=== PATIENT | male | born 1950 | race Caucasian/White ===

== ENCOUNTER 2020-06-20 04:45 | Inpatient (IN) | payer OTHER ==
[~2020-06-20] VITALS: Ht 185.4 cm; Wt 117.0 kg
[2020-06-20] MEDS ORDERED: ALBUTEROL SULF 2.5 MG/0.5ML(0.5%) NEB SOLN NEB ONE (05:00)
[2020-06-20] MEDS ORDERED: methylPREDNISolone SOD SUCC 125 MG/2 ML VL IV ONE (05:00)
[2020-06-20] MEDS ORDERED: IPRATROPIUM BROM 0.5 MG/2.5ML INH SOL NEB ONE (05:00)
[2020-06-20] MEDS ORDERED: ETOMIDATE (2MG/ML) 20ML VIAL IV ONE ×2 (05:06→05:10)
[2020-06-20] MEDS ORDERED: SUCCINYLCHOLINE CHLORIDE 20 MG/ML 10ML VIAL IV ONE ×3 (05:06→05:21)
[2020-06-20 05:25] LABS: Basophils # (auto) 0 10 ^3/uL (0-0.2); Basophils % (auto) 0.4 % (0.0-2.0); Eosinophils # (auto) 0 10 ^3/uL (0-0.8); Hematocrit 50.6 % (41.0-53.0); Hemoglobin 17.1 g/dL (13.5-17.5); Lymphocytes # (auto) 0.4 10 ^3/uL (0.4-5.4); Lymphocytes % (auto) 4.2 % (10.0-50.0); Mean Corpuscular Hemoglobin 29.1 pg (28.0-32.0); Mean Corpuscular Hgb Conc. 33.8 g/dL (32.0-36.0); Mean Corpuscular Volume 86.1 fL (80.0-100.0); Monocytes # (auto) 0.3 10 ^3/uL (0-1.3); Monocytes % (auto) 2.6 % (0.0-12.0); Neutrophils # (auto) 9.7 10 ^3/uL (1.6-8.6); Neutrophils % (auto) 92.8 % (37.0-80.0); Platelet Count (auto) 179 10^3/uL (140-450); Red Blood Cells 5.88 10^6/uL (4.5-5.90); Red Cell Distribution Width 14.2 % (11.8-14.3); White Blood Cell 10.5 10^3/uL (4.4-10.8)
[2020-06-20] MEDS: PROPOFOL 100 ML IV SCH ×3 (05:25→23:48)
[2020-06-20 05:32] VITALS: BP 102/65
[2020-06-20 05:45] LABS: Potassium 4.3 mmol/L (3.5-5.1)
[2020-06-20 05:56] LABS: Albumin 2.7 g/dL (3.4-5.0); Bilirubin, Total 0.7 mg/dL (0.2-1.0); Calcium 7.8 mg/dL (8.5-10.1); Magnesium 2.4 mg/dL (1.6-2.6); Total Protein 7.1 g/dL (6.4-8.2)
[2020-06-20] MEDS ORDERED: NOREPINEPHRINE 8 MG/250ML KIT 250 ML IV ONE (06:07)
[2020-06-20] MEDS: NOREPINEPHRINE 8 MG/250ML KIT 250 ML IV SCH ×2 (06:16→23:10)
[2020-06-20 06:21] LABS: INR 1.08 (0.9-1.15); Partial Thromboplastin Time 32.5 sec (23.0-31.2)
[2020-06-20] MEDS ORDERED: MIDAZOLAM DRIP 50 mg/50mL 50 ML IV ONE ×2 (06:51→10:29)
[2020-06-20] MEDS ORDERED: ENOXAPARIN SOD 100 MG/1 ML SYRINGE SC ONE (07:00)
[2020-06-20] MEDS ORDERED: NITROGLYCERIN 0.4 MG SL TAB SL PRN (07:45)
[2020-06-20] MEDS: SODIUM CHLORIDE 0.9% 1,000 ML IV SCH (07:45)
[2020-06-20] MEDS ORDERED: MORPHINE SULF INJ 2 MG/ML SYRINGE 1ML IV PRN (07:45)
[2020-06-20] MEDS ORDERED: REMDESIVIR PER PHARMACY 0 ML IV SCH ×2 (07:45→08:00)
[2020-06-20] MEDS ORDERED: ONDANSETRON HCL 4 MG/2 ML VIAL IV PRN (07:45)
[2020-06-20] MEDS ORDERED: ALBUTEROL SULF HFA 90MCG INH 200DOSE IN PRN (07:45)
[2020-06-20] MEDS ORDERED: ENOXAPARIN SOD 40 MG/0.4 ML SYRINGE SC SCH ×3 (08:45→10:00)
[2020-06-20 08:57] LABS: Hematocrit 49.3 % (41.0-53.0); Hemoglobin 16.3 g/dL (13.5-17.5); Mean Corpuscular Hgb Conc. 33.1 g/dL (32.0-36.0); Mean Corpuscular Volume 87.5 fL (80.0-100.0); Platelet Count (auto) 208 10^3/uL (140-450); Red Blood Cells 5.63 10^6/uL (4.5-5.90); White Blood Cell 13.9 10^3/uL (4.4-10.8)
[2020-06-20 09:00] LABS: Basophils % (manual) 0 (0.0-2.0); Blast Cells 0; Eosinophils % (manual) 0 (0-7); Promyelocytes % 0; Reactive Lymphocytes 0
[2020-06-20 09:08] LABS: Albumin 2.7 g/dL (3.4-5.0); Calcium 7.5 mg/dL (8.5-10.1); Magnesium 2.5 mg/dL (1.6-2.6); Potassium 4.2 mmol/L (3.5-5.1)
[2020-06-20 09:13] LABS: BUN/Creatinine Ratio 11.8; Bilirubin, Total 0.8 mg/dL (0.2-1.0)
[2020-06-20 09:17] LABS: Band Neutrophils % (manual) 9; Lymphocytes % (manual) 1 (10.0-50.0); Metamyelocytes % 1; Monocytes % (manual) 4 (0-12); Myelocytes % 1
[2020-06-20] MEDS: DexAMETHasone SOD PHOS 10MG/1ML VIAL INJ IV SCH (10:00)
[2020-06-20] MEDS ORDERED: DOXYCYCLINE 100MG/250ML 250 ML IV SCH (10:00)
[2020-06-20] MEDS ORDERED: BUDESONIDE (INHALATION) 180 MCG IH IN SCH (10:00)
[2020-06-20 10:25] VITALS: BP 98/64
[2020-06-20] MEDS ORDERED: CLOPIDOGREL BISULFATE 75 MG TAB PO ONE (12:00)
[2020-06-20 13:39] VITALS: BP 99/63
[2020-06-20] MEDS: MIDAZOLAM DRIP 50 mg/50mL 50 ML IV SCH ×2 (14:15→22:54)
[2020-06-20 14:17] LABS: Urine Bacteria FEW /hpf (None Seen); Urine Blood 2+ /uL (Negative); Urine Hyaline Cast FEW /lpf (0 - 2); Urine Specific Gravity 1.024 (1.001-1.035); Urine WBC 1 /hpf (0 - 3)
[2020-06-20] MEDS: AZITHROMYCIN 500MG/ 250ML 250 ML IV SCH (14:36)
[2020-06-20] MEDS ORDERED: REMDESIVIR 200 MG in NS 210ml LOADING DOSE ADULT IV ONE (15:00)
[2020-06-20 18:35] VITALS: BP 100/68
[2020-06-20] MEDS: ENOXAPARIN SOD 120 MG/0.8 ML SYRINGE SC SCH (22:19)
[2020-06-20 22:40] VITALS: BP 107/73
[2020-06-21] MEDS: SODIUM CHLORIDE 0.9% 1,000 ML IV SCH ×2 (00:25→17:10)
[2020-06-21 02:29] VITALS: BP 107/71
[2020-06-21] MEDS ORDERED: MIDAZOLAM HCL 10 ML IV ONE (04:59)
[2020-06-21] MEDS: MIDAZOLAM DRIP 50 mg/50mL 50 ML IV SCH ×2 (05:31→23:00)
[2020-06-21 07:00] VITALS: BP 105/69
[2020-06-21] MEDS: ENOXAPARIN SOD 120 MG/0.8 ML SYRINGE SC SCH ×2 (09:16→20:51)
[2020-06-21] MEDS: DexAMETHasone SOD PHOS 10MG/1ML VIAL INJ IV SCH (09:34)
[2020-06-21] MEDS: AZITHROMYCIN 500MG/ 250ML 250 ML IV SCH (09:36)
[2020-06-21 09:44] LABS: Hematocrit 46.6 % (41.0-53.0); Hemoglobin 15.8 g/dL (13.5-17.5); Mean Corpuscular Hemoglobin 29.3 pg (28.0-32.0); Mean Corpuscular Hgb Conc. 33.8 g/dL (32.0-36.0); Mean Corpuscular Volume 86.5 fL (80.0-100.0); Platelet Count (auto) 235 10^3/uL (140-450); Red Blood Cells 5.39 10^6/uL (4.5-5.90); Red Cell Distribution Width 14.3 % (11.8-14.3); White Blood Cell 17.4 10^3/uL (4.4-10.8)
[2020-06-21 09:52] LABS: Basophils % (manual) 0 (0.0-2.0); Blast Cells 0; Eosinophils % (manual) 0 (0-7); Metamyelocytes % 0; Myelocytes % 0; Promyelocytes % 0; Reactive Lymphocytes 0
[2020-06-21 10:04] LABS: Potassium 4.5 mmol/L (3.5-5.1)
[2020-06-21 10:24] LABS: Band Neutrophils % (manual) 7; Lymphocytes % (manual) 4 (10.0-50.0); Monocytes % (manual) 1 (0-12)
[2020-06-21 10:27] LABS: Albumin 2.3 g/dL (3.4-5.0); BUN/Creatinine Ratio 15.1; Bilirubin, Total 0.6 mg/dL (0.2-1.0); Calcium 7.8 mg/dL (8.5-10.1); Total Protein 6.8 g/dL (6.4-8.2)
[2020-06-21] MEDS ORDERED: CLOPIDOGREL BISULFATE 75 MG TAB PO ONE (12:00)
[2020-06-21 14:50] VITALS: BP 112/71
[2020-06-21] MEDS ORDERED: REMDESIVIR 100 MG in SODIUM CHL 0.9% 250 ML IV SCH (15:00)
[2020-06-21 18:18] VITALS: BP 112/76
[2020-06-21 22:22] VITALS: BP 110/74
[2020-06-21] MEDS: PROPOFOL 100 ML IV SCH (23:00)
[2020-06-21] MEDS ORDERED: DEXTROSE (50%) 50ML SYRG IV PRN (23:45)
[2020-06-21] MEDS ORDERED: SODIUM CHLORIDE 0.9% 1,000 ML IV SCH (23:45)
[2020-06-22] MEDS: InsuLIN REG 1unit/0.01ml Soln (100units/ml) SC SCH ×5 (00:25→23:45)
[2020-06-22] MEDS: PIPERACILLIN-TAZOB 2.25GM 50 ML IV SCH ×5 (00:25→23:44)
[2020-06-22] MEDS ORDERED: MIDAZOLAM HCL 10 ML IV ONE (03:29)
[2020-06-22] MEDS: NOREPINEPHRINE 8 MG/250ML KIT 250 ML IV SCH (04:00)
[2020-06-22] MEDS: MIDAZOLAM DRIP 50 mg/50mL 50 ML IV SCH (04:03)
[2020-06-22 04:47] LABS: Basophils # (auto) 0 10 ^3/uL (0-0.2); Basophils % (auto) 0.1 % (0.0-2.0); Eosinophils # (auto) 0 10 ^3/uL (0-0.8); Hematocrit 44.2 % (41.0-53.0); Lymphocytes # (auto) 0.5 10 ^3/uL (0.4-5.4); Lymphocytes % (auto) 2.8 % (10.0-50.0); Mean Corpuscular Hemoglobin 29.1 pg (28.0-32.0); Mean Corpuscular Hgb Conc. 33.9 g/dL (32.0-36.0); Monocytes # (auto) 0.7 10 ^3/uL (0-1.3); Neutrophils # (auto) 15.5 10 ^3/uL (1.6-8.6); Neutrophils % (auto) 93.1 % (37.0-80.0); Nucleated Red Blood Cells % 0.1 %; Platelet Count (auto) 235 10^3/uL (140-450); Red Blood Cells 5.14 10^6/uL (4.5-5.90); Red Cell Distribution Width 14.3 % (11.8-14.3); White Blood Cell 16.7 10^3/uL (4.4-10.8)
[2020-06-22 05:11] LABS: Potassium 4.5 mmol/L (3.5-5.1)
[2020-06-22 05:17] LABS: Albumin 2.1 g/dL (3.4-5.0); BUN/Creatinine Ratio 15.3; Bilirubin, Total 0.5 mg/dL (0.2-1.0); Calcium 6.8 mg/dL (8.5-10.1); Magnesium 3.1 mg/dL (1.6-2.6); Total Protein 6.5 g/dL (6.4-8.2)
[2020-06-22] MEDS: ACCU-CHEK COMFORT CURVE STRIP VI SCH ×5 (05:26→23:46)
[2020-06-22 07:00] VITALS: BP 111/72
[2020-06-22] MEDS: CHOLECALCIFEROL (VITD3) 2,000 UNIT CAP PO SCH (08:53)
[2020-06-22] MEDS: PANTOPRAZOLE 40 MG/10 ML VIAL INJ IV SCH (08:53)
[2020-06-22] MEDS: DexAMETHasone SOD PHOS 10MG/1ML VIAL INJ IV SCH (08:53)
[2020-06-22] MEDS: ASPirin-EC 81 mg tab PO SCH (08:53)
[2020-06-22] MEDS: ASCORBIC ACID 500 MG TAB PO SCH (08:53)
[2020-06-22] MEDS: ZINC SULFATE 220mg CAP or TAB PO SCH (08:54)
[2020-06-22] MEDS ORDERED: ENOXAPARIN SOD 120 MG/0.8 ML SYRINGE SC SCH (10:00)
[2020-06-22] MEDS: BUDESONIDE (INHALATION) 0.5 MG/2 ML NEB NEB SCH ×2 (10:00→18:20)
[2020-06-22] MEDS ORDERED: FUROSEMIDE 20 MG/2 ML VIAL IV SCH (10:00)
[2020-06-22 13:39] VITALS: BP 106/72
[2020-06-22 15:16] VITALS: BP 109/73
[2020-06-22 18:20] VITALS: BP 118/58
[2020-06-22] MEDS: BUMETANIDE INJECTION 25 MG in GIVE UN-DILUTED 0 ML IV SCH (20:41)
[2020-06-22] MEDS: ATORVASTATIN 20 MG TAB PO SCH (22:00)
[2020-06-22] MEDS: METOPROLOL TARTRATE 25 MG TAB PO SCH (22:00)
[2020-06-22] MEDS: DOPamine 1600MCG/ML D5W 250 ML IV SCH (22:12)
[2020-06-22 22:30] VITALS: BP 95/54
[2020-06-23 02:45] VITALS: BP 114/64
[2020-06-23] MEDS: PIPERACILLIN-TAZOB 2.25GM 50 ML IV SCH ×3 (06:00→18:30)
[2020-06-23] MEDS: InsuLIN REG 1unit/0.01ml Soln (100units/ml) SC SCH ×3 (06:00→18:00)
[2020-06-23] MEDS: ACCU-CHEK COMFORT CURVE STRIP VI SCH ×3 (06:00→18:12)
[2020-06-23 06:34] VITALS: BP 122/65
[2020-06-23] MEDS: PROPOFOL 100 ML IV SCH (06:41)
[2020-06-23] MEDS: NOREPINEPHRINE 8 MG/250ML KIT 250 ML IV SCH (06:42)
[2020-06-23 07:46] LABS: Hematocrit 46.3 % (41.0-53.0); Hemoglobin 15.5 g/dL (13.5-17.5); Mean Corpuscular Hemoglobin 29.3 pg (28.0-32.0); Mean Corpuscular Hgb Conc. 33.4 g/dL (32.0-36.0); Mean Corpuscular Volume 87.8 fL (80.0-100.0); Platelet Count (auto) 266 10^3/uL (140-450); Red Blood Cells 5.28 10^6/uL (4.5-5.90); Red Cell Distribution Width 15.1 % (11.8-14.3); White Blood Cell 19.1 10^3/uL (4.4-10.8)
[2020-06-23 08:06] LABS: Albumin 2.1 g/dL (3.4-5.0); Anion Gap 10 (5-15); Calcium 6.9 mg/dL (8.5-10.1); Carbon Dioxide 22 mmol/L (21-32); Chloride 96 mmol/L (98-107); Glucose 185 mg/dL (74-106); Sodium 128 mmol/L (136-145)
[2020-06-23 08:18] LABS: Alanine Aminotransferase 54 U/L (16-61); Alkaline Phosphatase 98 U/L (45-117); Aspartate Aminotransferase 90 U/L (15-37); BUN/Creatinine Ratio 12.4; Bilirubin, Total 0.8 mg/dL (0.2-1.0); GFR African American 9 mL/min; GFR Non-African American 8 mL/min; Total Protein 6.9 g/dL (6.4-8.2)
[2020-06-23 08:23] LABS: CRP High Sensitivity > 19.0 mg/dL (< 0.3); Potassium 6.6 mmol/L (3.5-5.1)
[2020-06-23 08:25] LABS: Blood Urea Nitrogen 93 mg/dL (7-18)
[2020-06-23 08:42] LABS: Basophils % (manual) 0 (0.0-2.0); Blast Cells 0; Eosinophils % (manual) 0 (0-7); Promyelocytes % 0; Reactive Lymphocytes 0
[2020-06-23] MEDS ORDERED: ALBUTEROL SULF 2.5 MG/0.5ML(0.5%) NEB SOLN NEB ONE (09:00)
[2020-06-23] MEDS ORDERED: CALCIUM GLUC 4.65meq/50ml D5AE 50 ML IV ONE (09:00)
[2020-06-23] MEDS ORDERED: DEXTROSE (50%) 50ML SYRG IV ONE (09:00)
[2020-06-23] MEDS ORDERED: SODIUM ZIRCONIUM CYCL 10 GM PAK GT ONE (09:00)
[2020-06-23] MEDS ORDERED: SODIUM BICARBONATE 8.4 % INJ 50ML VIAL IV ONE (09:00)
[2020-06-23] MEDS ORDERED: InsuLIN REG 1unit/0.01ml Soln (100units/ml) IV ONE (09:00)
[2020-06-23] MEDS: ASPirin-EC 81 mg tab PO SCH (10:00)
[2020-06-23] MEDS: BUDESONIDE (INHALATION) 0.5 MG/2 ML NEB NEB SCH ×2 (10:00→22:00)
[2020-06-23] MEDS: CHOLECALCIFEROL (VITD3) 2,000 UNIT CAP PO SCH (10:00)
[2020-06-23] MEDS: ASCORBIC ACID 500 MG TAB PO SCH (10:00)
[2020-06-23] MEDS ORDERED: ENOXAPARIN SOD 40 MG/0.4 ML SYRINGE SC SCH (10:00)
[2020-06-23] MEDS: DexAMETHasone SOD PHOS 10MG/1ML VIAL INJ IV SCH (10:00)
[2020-06-23] MEDS ORDERED: CLOPIDOGREL BISULFATE 75 MG TAB PO SCH (10:00)
[2020-06-23 10:12] LABS: Band Neutrophils % (manual) 11; Lymphocytes % (manual) 3 (10.0-50.0); Metamyelocytes % 3; Monocytes % (manual) 6 (0-12); Myelocytes % 1
[2020-06-23 10:22] VITALS: BP 109/59
[2020-06-23 11:00] VITALS: BP 102/61
[2020-06-23] MEDS ORDERED: BUMETANIDE 2.5mg/10ml (0.25 mg/ml) INJ IV ONE (11:30)
[2020-06-23] MEDS: ENOXAPARIN SOD 120 MG/0.8 ML SYRINGE SC SCH (14:00)
[2020-06-23] MEDS: ZINC SULFATE 220mg CAP or TAB PO SCH (14:00)
[2020-06-23] MEDS: SODIUM BICARBONATE 50ML VIAL 100 ML in SOD CHL 0.45% 1,000 ML IV SCH ×2 (14:00→22:30)
[2020-06-23] MEDS ORDERED: SODIUM BICARBONATE 8.4% INJ 50ML SYRINGE ONE (14:06)
[2020-06-23] MEDS: PANTOPRAZOLE 40 MG/10 ML VIAL INJ IV SCH (14:30)
[2020-06-23] MEDS ORDERED: methylPREDNISolone SOD SUCC 40 MG/ML VL IV ONE (15:30)
[2020-06-23] MEDS ORDERED: diphenhdrAMINE HCL 50 MG/1 ML VL IV ONE (15:30)
[2020-06-23] MEDS ORDERED: ACETAMINOPHEN 650 mg PER 20.3 mL UD PO ONE (15:30)
[2020-06-23] MEDS ORDERED: TOCILIZUMAB 400 MG in SODIUM CHL 0.9% 80 ML IV ONE (16:00)
[2020-06-23] MEDS: DOPamine 1600MCG/ML D5W 250 ML IV SCH (17:00)
[2020-06-23] MEDS: MIDAZOLAM DRIP 50 mg/50mL 50 ML IV SCH ×3 (17:02→18:31)
[2020-06-23] MEDS: BUMETANIDE INJECTION 25 MG in GIVE UN-DILUTED 0 ML IV SCH (18:00)
[2020-06-23 18:50] VITALS: BP 113/54
[2020-06-23] MEDS: LINEZOLID 600MG/300ML 300 ML IV SCH (22:00)
[2020-06-23] MEDS: ATORVASTATIN 20 MG TAB PO SCH (22:00)
[2020-06-23 22:42] LABS: Protein, Urine 142.9 mg/dL (0.0-11.9)
[2020-06-23 22:43] LABS: Creatinine, Urine 119 mg/dL (30.0-125.0); Sodium Urine 14 mmol/L (40-220)
[2020-06-23 22:50] VITALS: BP 129/64
[2020-06-24] MEDS: InsuLIN REG 1unit/0.01ml Soln (100units/ml) SC SCH ×4 (02:00→18:03)
[2020-06-24 02:30] VITALS: BP 130/70
[2020-06-24] MEDS ORDERED: SODIUM BICARBONATE 8.4% INJ 50ML SYRINGE ONE (02:36)
[2020-06-24] MEDS: PROPOFOL 100 ML IV SCH (05:38)
[2020-06-24] MEDS: ACCU-CHEK COMFORT CURVE STRIP VI SCH ×4 (05:38→18:03)
[2020-06-24] MEDS: NOREPINEPHRINE 8 MG/250ML KIT 250 ML IV SCH (05:39)
[2020-06-24 05:51] LABS: Hematocrit 40.8 % (41.0-53.0); Hemoglobin 13.5 g/dL (13.5-17.5); Mean Corpuscular Hemoglobin 28.5 pg (28.0-32.0); Mean Corpuscular Hgb Conc. 33.1 g/dL (32.0-36.0); Mean Corpuscular Volume 86.1 fL (80.0-100.0); Platelet Count (auto) 251 10^3/uL (140-450); Red Blood Cells 4.74 10^6/uL (4.5-5.90); Red Cell Distribution Width 15.1 % (11.8-14.3); White Blood Cell 16.3 10^3/uL (4.4-10.8)
[2020-06-24 05:56] LABS: Basophils % (manual) 0 (0.0-2.0); Blast Cells 0; Eosinophils % (manual) 0 (0-7); Myelocytes % 0; Reactive Lymphocytes 0
[2020-06-24 06:05] LABS: Albumin 1.7 g/dL (3.4-5.0); BUN/Creatinine Ratio 12.2; Bilirubin, Total 0.9 mg/dL (0.2-1.0); CRP High Sensitivity 17.7 mg/dL (< 0.3); Calcium 6.5 mg/dL (8.5-10.1); Total Protein 6.1 g/dL (6.4-8.2)
[2020-06-24] MEDS: BUDESONIDE (INHALATION) 0.5 MG/2 ML NEB NEB SCH ×2 (06:15→09:09)
[2020-06-24] MEDS: PIPERACILLIN-TAZOB 2.25GM 50 ML IV SCH ×4 (06:21→18:02)
[2020-06-24 06:54] VITALS: BP 128/75
[2020-06-24] MEDS ORDERED: diphenhdrAMINE HCL 50 MG/1 ML VL IV ONE (07:30)
[2020-06-24] MEDS ORDERED: ACETAMINOPHEN 650 mg PER 20.3 mL UD PO ONE (07:30)
[2020-06-24] MEDS ORDERED: methylPREDNISolone SOD SUCC 40 MG/ML VL IV ONE (07:30)
[2020-06-24 07:35] LABS: Band Neutrophils % (manual) 7; Lymphocytes % (manual) 3 (10.0-50.0); Metamyelocytes % 2; Monocytes % (manual) 5 (0-12); Promyelocytes % 2
[2020-06-24] MEDS ORDERED: TOCILIZUMAB 400 MG in SODIUM CHL 0.9% 80 ML IV ONE (08:00)
[2020-06-24] MEDS: SODIUM BICARBONATE 50ML VIAL 100 ML in SOD CHL 0.45% 1,000 ML IV SCH ×2 (09:30→18:03)
[2020-06-24] MEDS: ASCORBIC ACID 500 MG TAB PO SCH (10:00)
[2020-06-24] MEDS: ENOXAPARIN SOD 120 MG/0.8 ML SYRINGE SC SCH (10:00)
[2020-06-24] MEDS: ASPirin-EC 81 mg tab PO SCH (10:00)
[2020-06-24] MEDS: PANTOPRAZOLE 40 MG/10 ML VIAL INJ IV SCH (10:00)
[2020-06-24] MEDS: ZINC SULFATE 220mg CAP or TAB PO SCH (10:00)
[2020-06-24] MEDS: DexAMETHasone SOD PHOS 10MG/1ML VIAL INJ IV SCH (10:00)
[2020-06-24] MEDS: LINEZOLID 600MG/300ML 300 ML IV SCH ×2 (10:00→22:00)
[2020-06-24] MEDS: CHOLECALCIFEROL (VITD3) 2,000 UNIT CAP PO SCH (10:00)
[2020-06-24] MEDS ORDERED: methylPREDNISolone SOD SUCC 125 MG/2 ML VL ONE (12:15)
[2020-06-24] MEDS ORDERED: SODIUM CHL 0.9% 1000 ML BAG XX ONE (13:00)
[2020-06-24 13:54] VITALS: BP 109/62
[2020-06-24] MEDS: DOPamine 1600MCG/ML D5W 250 ML IV SCH (17:42)
[2020-06-24] MEDS: BUMETANIDE INJECTION 25 MG in GIVE UN-DILUTED 0 ML IV SCH (17:43)
[2020-06-24 18:30] VITALS: BP 95/52
[2020-06-24] MEDS: ATORVASTATIN 20 MG TAB PO SCH (22:00)
[2020-06-24 22:30] VITALS: BP 100/56
[2020-06-25] VITALS (10 sets, daily range): BP systolic 90–120; BP diastolic 46–67
[2020-06-25] MEDS: ACCU-CHEK COMFORT CURVE STRIP VI SCH ×4 (00:21→16:48)
[2020-06-25] MEDS: InsuLIN REG 1unit/0.01ml Soln (100units/ml) SC SCH ×4 (00:26→16:49)
[2020-06-25] MEDS: PIPERACILLIN-TAZOB 2.25GM 50 ML IV SCH ×2 (00:26→06:00)
[2020-06-25] MEDS: BUDESONIDE (INHALATION) 0.5 MG/2 ML NEB NEB SCH ×2 (06:15→20:08)
[2020-06-25] MEDS: NOREPINEPHRINE 8 MG/250ML KIT 250 ML IV SCH (06:29)
[2020-06-25] MEDS: PROPOFOL 100 ML IV SCH ×2 (06:29→09:03)
[2020-06-25] MEDS: SODIUM BICARBONATE 50ML VIAL 100 ML in SOD CHL 0.45% 1,000 ML IV SCH ×2 (07:30→20:29)
[2020-06-25] MEDS: DexAMETHasone SOD PHOS 10MG/1ML VIAL INJ IV SCH ×2 (09:06→23:27)
[2020-06-25] MEDS: CHOLECALCIFEROL (VITD3) 2,000 UNIT CAP PO SCH (09:06)
[2020-06-25] MEDS: ZINC SULFATE 220mg CAP or TAB PO SCH (09:06)
[2020-06-25] MEDS: ASPirin-EC 81 mg tab PO SCH (09:06)
[2020-06-25] MEDS: PANTOPRAZOLE 40 MG/10 ML VIAL INJ IV SCH (09:06)
[2020-06-25] MEDS: ASCORBIC ACID 500 MG TAB PO SCH (09:06)
[2020-06-25] MEDS: ENOXAPARIN SOD 120 MG/0.8 ML SYRINGE SC SCH (09:06)
[2020-06-25] MEDS: LINEZOLID 600MG/300ML 300 ML IV SCH ×2 (09:23→23:27)
[2020-06-25] MEDS ORDERED: LINEZOLID 600MG/300ML 300 ML IV SCH (10:00)
[2020-06-25] MEDS: MEROPENEM 500MG IVPB 50 ML IV SCH (10:00)
[2020-06-25 10:26] LABS: Hematocrit 39.7 % (41.0-53.0); Hemoglobin 13.1 g/dL (13.5-17.5); Mean Corpuscular Hemoglobin 28.6 pg (28.0-32.0); Mean Corpuscular Volume 86.7 fL (80.0-100.0); Platelet Count (auto) 325 10^3/uL (140-450); Red Blood Cells 4.58 10^6/uL (4.5-5.90); Red Cell Distribution Width 15.4 % (11.8-14.3); White Blood Cell 18.7 10^3/uL (4.4-10.8)
[2020-06-25 10:36] LABS: Basophils % (manual) 0 (0.0-2.0); Blast Cells 0; Eosinophils % (manual) 0 (0-7); Promyelocytes % 0; Reactive Lymphocytes 0
[2020-06-25 10:46] LABS: Albumin 1.9 g/dL (3.4-5.0); Calcium 6.3 mg/dL (8.5-10.1)
[2020-06-25 10:56] LABS: BUN/Creatinine Ratio 13.3; Bilirubin, Total 0.9 mg/dL (0.2-1.0); Total Protein 6.2 g/dL (6.4-8.2)
[2020-06-25 11:14] LABS: Magnesium 4.1 mg/dL (1.6-2.6); Potassium 6.7 mmol/L (3.5-5.1)
[2020-06-25 11:43] LABS: INR 1.06 (0.9-1.15)
[2020-06-25 12:11] LABS: Band Neutrophils % (manual) 11; Lymphocytes % (manual) 2 (10.0-50.0); Metamyelocytes % 4; Monocytes % (manual) 4 (0-12); Myelocytes % 4
[2020-06-25] MEDS ORDERED: FUROSEMIDE 20 MG/2 ML VIAL IV ONE (13:30)
[2020-06-25] MEDS ORDERED: SODIUM BICARBONATE 8.4% INJ 50ML SYRINGE IV ONE (13:30)
[2020-06-25] MEDS ORDERED: InsuLIN REG 1unit/0.01ml Soln (100units/ml) IV ONE ×2 (13:30→19:00)
[2020-06-25] MEDS ORDERED: CALCIUM GLUC 4.65meq/50ml D5AE 50 ML IV ONE ×3 (13:30→19:00)
[2020-06-25] MEDS ORDERED: SODIUM ZIRCONIUM CYCL 10 GM PAK PO ONE (13:30)
[2020-06-25] MEDS ORDERED: DEXTROSE (50%) 50ML SYRG IV ONE ×2 (13:30→19:00)
[2020-06-25] MEDS: SODIUM ZIRCONIUM CYCL 10 GM PAK PO SCH (14:00)
[2020-06-25] MEDS: BUMETANIDE 2.5mg/10ml (0.25 mg/ml) INJ IV SCH (18:22)
[2020-06-25] MEDS ORDERED: ALBUTEROL SULF 2.5 MG/0.5ML(0.5%) NEB SOLN NEB ONE (19:00)
[2020-06-25] MEDS: LACTULOSE 20Gm/30ML SOLN PO SCH ×3 (20:00→23:20)
[2020-06-25] MEDS: DOPamine 1600MCG/ML D5W 250 ML IV SCH (20:29)
[2020-06-25] MEDS: MIDAZOLAM DRIP 50 mg/50mL 50 ML IV SCH (20:48)
[2020-06-25] MEDS: ATORVASTATIN 20 MG TAB PO SCH (22:00)
[2020-06-26] MEDS: SODIUM ZIRCONIUM CYCL 10 GM PAK PO SCH ×4 (00:52→22:17)
[2020-06-26 01:06] VITALS: BP 101/53
[2020-06-26] MEDS: LACTULOSE 20Gm/30ML SOLN PO SCH ×12 (02:00→22:00)
[2020-06-26] MEDS: SODIUM BICARBONATE 50ML VIAL 100 ML in SOD CHL 0.45% 1,000 ML IV SCH (05:40)
[2020-06-26] MEDS: NOREPINEPHRINE 8 MG/250ML KIT 250 ML IV SCH (05:40)
[2020-06-26] MEDS: ACCU-CHEK COMFORT CURVE STRIP VI SCH ×4 (05:40→17:09)
[2020-06-26] MEDS: InsuLIN REG 1unit/0.01ml Soln (100units/ml) SC SCH ×4 (05:48→17:12)
[2020-06-26] MEDS: BUMETANIDE 2.5mg/10ml (0.25 mg/ml) INJ IV SCH ×2 (05:51→18:00)
[2020-06-26 06:36] VITALS: BP 104/54
[2020-06-26] MEDS: BUDESONIDE (INHALATION) 0.5 MG/2 ML NEB NEB SCH ×2 (06:36→22:00)
[2020-06-26] MEDS ORDERED: SODIUM CHL 0.9% 1000 ML BAG XX ONE (07:00)
[2020-06-26] MEDS: DexAMETHasone SOD PHOS 10MG/1ML VIAL INJ IV SCH (08:27)
[2020-06-26] MEDS: ASCORBIC ACID 500 MG TAB PO SCH (08:28)
[2020-06-26] MEDS: ZINC SULFATE 220mg CAP or TAB PO SCH (08:28)
[2020-06-26] MEDS: ASPirin-EC 81 mg tab PO SCH (08:28)
[2020-06-26] MEDS: ENOXAPARIN SOD 120 MG/0.8 ML SYRINGE SC SCH (08:28)
[2020-06-26] MEDS: PANTOPRAZOLE 40 MG/10 ML VIAL INJ IV SCH (08:28)
[2020-06-26] MEDS: CHOLECALCIFEROL (VITD3) 2,000 UNIT CAP PO SCH (08:28)
[2020-06-26] MEDS: MEROPENEM 500MG IVPB 50 ML IV SCH (08:31)
[2020-06-26 09:56] LABS: Hematocrit 38.3 % (41.0-53.0); Hemoglobin 12.7 g/dL (13.5-17.5); Mean Corpuscular Hemoglobin 28.7 pg (28.0-32.0); Mean Corpuscular Hgb Conc. 33.1 g/dL (32.0-36.0); Mean Corpuscular Volume 86.8 fL (80.0-100.0); Platelet Count (auto) 341 10^3/uL (140-450); Red Blood Cells 4.42 10^6/uL (4.5-5.90); Red Cell Distribution Width 15.7 % (11.8-14.3)
[2020-06-26 09:59] LABS: Basophils % (manual) 0 (0.0-2.0); Blast Cells 0; Eosinophils % (manual) 0 (0-7); Promyelocytes % 0; Reactive Lymphocytes 0
[2020-06-26] MEDS: LINEZOLID 600MG/300ML 300 ML IV SCH ×2 (10:00→22:17)
[2020-06-26 10:20] LABS: INR 1.07 (0.9-1.15)
[2020-06-26 10:57] LABS: BUN/Creatinine Ratio 14.1; Bilirubin, Total 1.2 mg/dL (0.2-1.0)
[2020-06-26 11:06] VITALS: BP 130/76
[2020-06-26 11:36] LABS: Calcium 5.9 mg/dL (8.5-10.1); Magnesium 4.2 mg/dL (1.6-2.6); Potassium 7.1 mmol/L (3.5-5.1)
[2020-06-26] MEDS: FLUCONAZOLE 200MG/100ML 100 ML IV SCH ×2 (14:00→15:00)
[2020-06-26 14:11] LABS: Band Neutrophils % (manual) 9; Lymphocytes % (manual) 1 (10.0-50.0); Metamyelocytes % 1; Monocytes % (manual) 6 (0-12); Myelocytes % 2
[2020-06-26 16:11] LABS: % Iron Saturation 10.3 % (20-55)
[2020-06-26] MEDS: MIDAZOLAM DRIP 50 mg/50mL 50 ML IV SCH (16:27)
[2020-06-26 19:15] VITALS: BP 103/59
[2020-06-26 21:27] LABS: Calcium 6.1 mg/dL (8.5-10.1)
[2020-06-26 21:32] LABS: BUN/Creatinine Ratio 13.8
[2020-06-26 21:37] LABS: Potassium 5.7 mmol/L (3.5-5.1)
[2020-06-26] MEDS: ATORVASTATIN 20 MG TAB PO SCH (22:17)
[2020-06-26 22:30] VITALS: BP 110/68
[2020-06-27] VITALS (32 sets, daily range): BP systolic 49–127; BP diastolic 22–73
[2020-06-27] MEDS: LACTULOSE 20Gm/30ML SOLN PO SCH ×7 (02:00→12:00)
[2020-06-27] MEDS: PROPOFOL 100 ML IV SCH (05:00)
[2020-06-27] MEDS: BUMETANIDE 2.5mg/10ml (0.25 mg/ml) INJ IV SCH ×2 (05:52→06:00)
[2020-06-27] MEDS: SODIUM ZIRCONIUM CYCL 10 GM PAK PO SCH (05:53)
[2020-06-27] MEDS: ACCU-CHEK COMFORT CURVE STRIP VI SCH ×3 (05:53→12:15)
[2020-06-27] MEDS: MIDAZOLAM DRIP 50 mg/50mL 50 ML IV SCH (05:58)
[2020-06-27] MEDS: InsuLIN REG 1unit/0.01ml Soln (100units/ml) SC SCH ×3 (06:00→11:51)
[2020-06-27] MEDS: NOREPINEPHRINE 8 MG/250ML KIT 250 ML IV SCH (06:15)
[2020-06-27] MEDS ORDERED: PHENYLEPHRINE IV 250 ML IV ONE (07:02)
[2020-06-27] MEDS ORDERED: PHENYLEPHRINE IV 250 ML IV SCH (07:15)
[2020-06-27] MEDS: BUDESONIDE (INHALATION) 0.5 MG/2 ML NEB NEB SCH (07:33)
[2020-06-27 08:22] LABS: Hematocrit 36.1 % (41.0-53.0); Hemoglobin 12.3 g/dL (13.5-17.5); Mean Corpuscular Hemoglobin 29.4 pg (28.0-32.0); Mean Corpuscular Hgb Conc. 34.1 g/dL (32.0-36.0); Platelet Count (auto) 346 10^3/uL (140-450); Red Blood Cells 4.19 10^6/uL (4.5-5.90); Red Cell Distribution Width 15.5 % (11.8-14.3)
[2020-06-27 08:30] LABS: White Blood Cell 33.1 10^3/uL (4.4-10.8)
[2020-06-27 08:31] LABS: Basophils % (manual) 0 (0.0-2.0); Blast Cells 0; Eosinophils % (manual) 0 (0-7); Promyelocytes % 0; Reactive Lymphocytes 0
[2020-06-27 08:33] LABS: Albumin 1.9 g/dL (3.4-5.0); Magnesium 3.7 mg/dL (1.6-2.6)
[2020-06-27 08:36] LABS: Bilirubin, Total 0.9 mg/dL (0.2-1.0); Total Protein 5.3 g/dL (6.4-8.2)
[2020-06-27] MEDS ORDERED: VASOPRESSIN 20 UNIT/ML ONE (08:38)
[2020-06-27] MEDS ORDERED: VASOPRESSIN 50 UNITS in D5W 5% 247.5 ML IV SCH (08:45)
[2020-06-27] MEDS ORDERED: NOREPINEPHRINE BITARTRATE 16 MG in SODIUM CHL 0.9% 250 ML IV SCH (09:00)
[2020-06-27] MEDS ORDERED: PHENYLEPHRINE INJ 40 MG in SODIUM CHL 0.9% 250 ML IV SCH (09:00)
[2020-06-27] MEDS: ZINC SULFATE 220mg CAP or TAB PO SCH (10:00)
[2020-06-27] MEDS: ASPirin-EC 81 mg tab PO SCH (10:00)
[2020-06-27] MEDS ORDERED: DexAMETHasone SOD PHOS 10MG/1ML VIAL INJ IV SCH (10:00)
[2020-06-27] MEDS: CHOLECALCIFEROL (VITD3) 2,000 UNIT CAP PO SCH (10:00)
[2020-06-27] MEDS: ASCORBIC ACID 500 MG TAB PO SCH (10:00)
[2020-06-27] MEDS: PANTOPRAZOLE 40 MG/10 ML VIAL INJ IV SCH (10:06)
[2020-06-27] MEDS: ENOXAPARIN SOD 120 MG/0.8 ML SYRINGE SC SCH (10:06)
[2020-06-27 10:08] LABS: Potassium 6.9 mmol/L (3.5-5.1)
[2020-06-27 10:10] LABS: Calcium 5.7 mg/dL (8.5-10.1)
[2020-06-27] MEDS ORDERED: CALCIUM GLUC 4.65meq/50ml D5AE 50 ML IV ONE ×2 (11:26→11:30)
[2020-06-27] MEDS ORDERED: SODIUM BICARBONATE 8.4% INJ 50ML SYRINGE ONE (11:27)
[2020-06-27] MEDS ORDERED: SODIUM BICARBONATE 8.4 % INJ 50ML VIAL IV ONE ×3 (11:27→12:30)
[2020-06-27] MEDS ORDERED: DEXTROSE 50% SYRINGE 50 ML IV ONE (11:27)
[2020-06-27] MEDS ORDERED: DEXTROSE (50%) 50ML SYRG IV ONE (11:30)
[2020-06-27] MEDS ORDERED: ACETAMINOPHEN 650 mg PER 20.3 mL UD GT PRN (11:30)
[2020-06-27] MEDS ORDERED: InsuLIN REG 1unit/0.01ml Soln (100units/ml) IV ONE (11:30)
[2020-06-27] MEDS: MEROPENEM 500MG IVPB 50 ML IV SCH (12:00)
[2020-06-27] MEDS ORDERED: FLUCONAZOLE 200MG/100ML 100 ML IV SCH (12:00)
[2020-06-27] MEDS ORDERED: NOREPINEPHRINE BITARTRATE 4 ML IV ONE (12:06)
[2020-06-27 12:30] LABS: BUN/Creatinine Ratio 14.5
[2020-06-27] MEDS ORDERED: EPINEPHrine HCL 250 ML IV SCH (12:42)
[2020-06-27] MEDS ORDERED: EPINEPHrine HCL 250 ML IV ONE (12:44)
[2020-06-27 14:27] LABS: Lymphocytes % (manual) 3 (10.0-50.0); Monocytes % (manual) 2 (0-12)
[2020-06-27 14:28] LABS: Band Neutrophils % (manual) 8; Metamyelocytes % 2; Myelocytes % 2
[2020-06-28 11:26] LABS: Hepatitis A Ab IgM Negative; Hepatitis B Core IgM Negative; Hepatitis B Surface Antigen Negative (Negative); Hepatitis C Antibody Negative (Negative)
== END 2020-06-27 23:42 | DRG 870 ==
LOC: ER 04:45 → EDBD 04:45 → OVERFLOW 04:46 → ICU WEST 06-27 04:29
PROVIDERS: ADMIT Nurse Practitioner Family; ATTEND Internal Medicine
PROC: 5A09357 Assistance with Respiratory Ventilation, Less than 24 Consecutive Hours, Continuous Positive Airway Pressure (ICD-10-PCS; principal; 2020-06-20)
PROC: XW033E5 Introduction of Remdesivir Anti-infective into Peripheral Vein, Percutaneous Approach, New Technology Group 5 (ICD-10-PCS; 2020-06-20)
PROC: XW033H5 Introduction of Tocilizumab into Peripheral Vein, Percutaneous Approach, New Technology Group 5 (ICD-10-PCS; 2020-06-20)
PROC: 06HY33Z Insertion of Infusion Device into Lower Vein, Percutaneous Approach (ICD-10-PCS; 2020-06-20)
PROC: 5A1955Z Respiratory Ventilation, Greater than 96 Consecutive Hours (ICD-10-PCS; 2020-06-21)
PROC: 0BH17EZ Insertion of Endotracheal Airway into Trachea, Via Natural or Artificial Opening (ICD-10-PCS; 2020-06-21)
PROC: XW13325 Transfusion of Convalescent Plasma (Nonautologous) into Peripheral Vein, Percutaneous Approach, New Technology Group 5 (ICD-10-PCS; 2020-06-25)
PROC: 5A1D70Z Performance of Urinary Filtration, Intermittent, Less than 6 Hours Per Day (ICD-10-PCS; 2020-06-26)
DX: A41.89 Other specified sepsis (principal); U07.1 COVID-19; J12.89 Other viral pneumonia; J96.01 Acute respiratory failure with hypoxia; N17.0 Acute kidney failure with tubular necrosis; I50.43 Acute on chronic combined systolic (congestive) and diastolic (congestive) heart failure; I21.A1 Myocardial infarction type 2; J44.1 Chronic obstructive pulmonary disease with (acute) exacerbation; D68.69 Other thrombophilia; G93.1 Anoxic brain damage, not elsewhere classified; I82.402 Acute embolism and thrombosis of unspecified deep veins of left lower extremity; J44.0 Chronic obstructive pulmonary disease with (acute) lower respiratory infection; Z99.11 Dependence on respirator [ventilator] status; N18.9 Chronic kidney disease, unspecified; I46.9 Cardiac arrest, cause unspecified; Z66 Do not resuscitate; E87.5 Hyperkalemia; E66.01 Morbid (severe) obesity due to excess calories; I25.10 Atherosclerotic heart disease of native coronary artery without angina pectoris; E11.22 Type 2 diabetes mellitus with diabetic chronic kidney disease; Z68.34 Body mass index [BMI] 34.0-34.9, adult; G47.30 Sleep apnea, unspecified
CPT/HCPCS: 36415; 36600; 71045; 80048; 80053; 80061; 80074; 81001; 82140; 82306; 82570; 82728; 82805; 82962; 83036; 83540; 83550; 83605; 83615; 83735; 83880; 84132; 84156; 84300; 84443; 84484; 85007; 85025; 85027; 85379; 85610; 85730; 86141; 86850; 86900; 86901; 87040; 87070; 87081; 87205; 87426; 90935; 93005; 93306; 93970; 94002; 94003; 94640; 94660; C9113; G0378; J0171; J0330; J0610; J1100; J1450; J1815; J2185; J2250; J2543; J2704; J3490; J7060